=== PATIENT | female | born 1975 | race Caucasian/White ===

== ENCOUNTER 2018-03-09 14:14 | Inpatient (IN) | payer OTHER, SELFPAY ==
[2018-03-09 15:42] LABS: HEMATOCRIT 42.7 % (36.0-47.0); HEMOGLOBIN 14.7 g/dl (12.0-15.5); MEAN CORPUSCULAR HEMOGLOBIN 30.5 pg (27.0-33.0); MEAN CORPUSCULAR HGB CONC 34.4 g/dl (32.0-36.5); MEAN CORPUSCULAR VOLUME 88.6 fl (80.0-96.0); PLATELET COUNT, AUTOMATED 220 10^3/uL (150-450); RED BLOOD COUNT 4.82 10^6/uL (4.00-5.40); RED CELL DISTRIBUTION WIDTH 11.8 % (11.5-14.5); WHITE BLOOD COUNT 7.5 10^3/uL (4.0-10.0)
[2018-03-09 16:03] LABS: CONTROL LINE HCG INT CTR LINE PRESENT; HCG, SERUM QUALITATIVE NEGATIVE (NEGATIVE)
[2018-03-09 16:16] LABS: AMPHETAMINES LEVEL URINE NEGATIVE (NEGATIVE); BARBITURATES URINE NEGATIVE (NEGATIVE); BENZODIAZEPINES URINE NEGATIVE (NEGATIVE); CANNABINOIDS URINE NEGATIVE (NEGATIVE); COCAINE METABOLITE URINE NEGATIVE (NEGATIVE); METHADONE URINE NEGATIVE (NEGATIVE); OPIATES URINE NEGATIVE (NEGATIVE); PHENCYCLIDINE URINE NEGATIVE (NEGATIVE)
[2018-03-09 16:21] LABS: ACETAMINOPHEN LEVEL < 2.0 UG/ML (10.0-30.0); ALBUMIN 4.2 GM/DL (3.2-5.2); ALBUMIN/GLOBULIN RATIO 1.27 (1.00-1.93); ALKALINE PHOSPHATASE 81 U/L (45-117); ALT/SGPT 34 U/L (12-78); ANION GAP 10 MEQ/L (8-16); AST/SGOT 23 U/L (7-37); BILIRUBIN,DIRECT 0.1 MG/DL (0.0-0.2); BILIRUBIN,TOTAL 0.5 MG/DL (0.2-1.0); BLOOD UREA NITROGEN 11 MG/DL (7-18); CALCIUM LEVEL 8.9 MG/DL (8.5-10.1); CARBON DIOXIDE LEVEL 27 MEQ/L (21-32); CHLORIDE LEVEL 106 MEQ/L (98-107); CREATININE FOR GFR 0.85 MG/DL (0.55-1.30); ETHYL ALCOHOL (ETHANOL) < 0.003 % (0.000-0.010); GLOMERULAR FILTRATION RATE > 60.0 (>58); GLUCOSE, FASTING 84 MG/DL (70-100); SALICYLATE LEVEL < 1.7 MG/DL (5.0-30.0); SODIUM LEVEL 143 MEQ/L (136-145); TOTAL PROTEIN 7.5 GM/DL (6.4-8.2)
[2018-03-09] MEDS ORDERED: MOM 30ML SUSPENSION UDC PO (17:15)
[2018-03-09] MEDS ORDERED: MAALOX 30 ML SUSP *UDC PO (17:15)
[2018-03-10] MEDS ORDERED: OLANZapine ORAL DISINTEGRATING TAB 5MG PO (14:30)
[2018-03-10] MEDS ORDERED: hydrOXYzine 50 MG TAB PO (14:30)
[2018-03-10] MEDS ORDERED: diphenhydrAMINE 50 MG CAP PO (14:30)
[2018-03-10] MEDS: QUEtiapine FUMARATE 50 MG TAB PO ×2 (16:09→21:00)
[2018-03-11] MEDS: QUEtiapine FUMARATE 50 MG TAB PO ×3 (10:04→21:00)
[2018-03-12] MEDS: QUEtiapine FUMARATE 50 MG TAB PO ×2 (09:58→15:00)
[2018-03-12] MEDS: PALIPERIDONE PALMITATE 234 MG/1.5 ML INJ (INVEGA SUSTENNA)(J2426) IM (15:00)
[2018-03-12] MEDS: ACETAMINOPHEN TAB 650MG DOSE (2X325MG) PO (16:01)
[2018-03-13] MEDS: PILL CRUSHER/CUTTER 1 EACH XX (09:46)
[2018-03-14] MEDS: PILL CRUSHER/CUTTER 1 EACH XX ×2 (09:46→22:00)
[2018-03-16] MEDS: ACETAMINOPHEN TAB 650MG DOSE (2X325MG) PO ×2 (12:53→21:32)
[2018-03-17] MEDS: traZODone 50 MG TAB PO (23:30)
[2018-03-18] MEDS: ACETAMINOPHEN TAB 650MG DOSE (2X325MG) PO (01:52)
[2018-03-18] MEDS: ARIPiprazole 10 MG TAB PO (20:41)
[2018-03-19] MEDS: ARIPiprazole 10 MG TAB PO ×2 (09:36→19:55)
[2018-03-19] MEDS: diphenhydrAMINE 50 MG CAP PO (23:36)
[2018-03-20] MEDS: diphenhydrAMINE 50 MG CAP PO ×2 (08:35→21:00)
[2018-03-20] MEDS: ARIPiprazole 10 MG TAB PO ×2 (08:35→21:07)
[2018-03-21] MEDS: diphenhydrAMINE 50 MG CAP PO ×2 (08:33→21:00)
[2018-03-21] MEDS: ARIPiprazole 10 MG TAB PO ×2 (08:33→20:24)
[2018-03-22] MEDS: diphenhydrAMINE 50 MG CAP PO ×2 (09:00→21:00)
[2018-03-22] MEDS: ARIPiprazole 10 MG TAB PO ×2 (09:56→21:05)
[2018-03-22] MEDS ORDERED: TUBERCULIN PPD 5 UNITS/0.1 ML ID (10:15)
[2018-03-22] MEDS: TUBERCULIN PPD 5 UNITS/0.1 ML ID (10:26)
[2018-03-22] MEDS: ACETAMINOPHEN TAB 650MG DOSE (2X325MG) PO (11:58)
[2018-03-23] MEDS: diphenhydrAMINE 50 MG CAP PO ×2 (09:00→20:19)
[2018-03-23] MEDS: ARIPiprazole 10 MG TAB PO ×2 (09:58→20:18)
[2018-03-24] MEDS: diphenhydrAMINE 50 MG CAP PO ×3 (09:00→21:29)
[2018-03-24] MEDS: ARIPiprazole 10 MG TAB PO ×2 (10:14→20:43)
[2018-03-24] MEDS: PPD DOCUMENTATION ENTRY MISC XX (11:11)
[2018-03-25] MEDS: ARIPiprazole 10 MG TAB PO (08:42)
[2018-03-25] MEDS: diphenhydrAMINE 50 MG CAP PO ×2 (08:42→20:33)
[2018-03-25] MEDS: ACETAMINOPHEN TAB 650MG DOSE (2X325MG) PO (12:38)
[2018-03-25] MEDS: ARIPiprazole 15 MG TAB (AbiLIFY) PO (20:33)
[2018-03-26] MEDS: ARIPiprazole 15 MG TAB (AbiLIFY) PO ×2 (08:27→20:05)
[2018-03-26] MEDS: diphenhydrAMINE 50 MG CAP PO ×2 (08:29→20:06)
[2018-03-26] MEDS: ACETAMINOPHEN TAB 650MG DOSE (2X325MG) PO (22:40)
[2018-03-27] MEDS: diphenhydrAMINE 50 MG CAP PO ×2 (09:00→20:12)
[2018-03-27] MEDS: ARIPiprazole 15 MG TAB (AbiLIFY) PO ×2 (09:43→20:12)
[2018-03-28] MEDS: diphenhydrAMINE 50 MG CAP PO ×2 (09:00→20:41)
[2018-03-28] MEDS: ARIPiprazole 15 MG TAB (AbiLIFY) PO ×2 (09:29→20:42)
[2018-03-29] MEDS: diphenhydrAMINE 50 MG CAP PO ×2 (09:00→20:47)
[2018-03-29] MEDS: ARIPiprazole 15 MG TAB (AbiLIFY) PO ×2 (09:45→20:46)
[2018-03-30] MEDS: diphenhydrAMINE 50 MG CAP PO (09:00)
[2018-03-30] MEDS ORDERED: risperiDONE 2 MG TAB PO ×2 (09:00→21:00)
[2018-03-30] MEDS: ARIPiprazole 15 MG TAB (AbiLIFY) PO (10:12)
[2018-03-30] MEDS ORDERED: risperiDONE 3 MG TAB PO ×2 (15:00→21:00)
[2018-03-30] MEDS: BENZTROPINE 1 MG TAB PO (20:33)
[2018-03-30] MEDS: risperiDONE 3 MG TAB PO (20:33)
[2018-03-30] MEDS ORDERED: diphenhydrAMINE 25 MG CAP PO (21:00)
[2018-03-30] MEDS ORDERED: BENZTROPINE 1 MG TAB PO (21:00)
[2018-03-31] MEDS: risperiDONE 2 MG TAB PO (08:34)
[2018-03-31] MEDS ORDERED: ARIPiprazole 10 MG TAB PO (09:00)
[2018-03-31] MEDS: risperiDONE 3 MG TAB PO (20:45)
[2018-03-31] MEDS: BENZTROPINE 1 MG TAB PO (20:45)
[2018-04-01] MEDS: risperiDONE 2 MG TAB PO (09:35)
[2018-04-01] MEDS: BENZTROPINE 1 MG TAB PO (20:03)
[2018-04-01] MEDS: risperiDONE 3 MG TAB PO (20:03)
[2018-04-02] MEDS: risperiDONE 2 MG TAB PO (09:28)
[2018-04-02] MEDS: BENZTROPINE 1 MG TAB PO (20:59)
[2018-04-02] MEDS: risperiDONE 3 MG TAB PO (20:59)
[2018-04-03] MEDS: risperiDONE 2 MG TAB PO (09:37)
[2018-04-03] MEDS: BENZTROPINE 1 MG TAB PO (19:57)
[2018-04-03] MEDS: risperiDONE 3 MG TAB PO (19:58)
[2018-04-04] MEDS: risperiDONE 2 MG TAB PO (09:05)
[2018-04-04] MEDS: risperiDONE 3 MG TAB PO (20:11)
[2018-04-04] MEDS: BENZTROPINE 1 MG TAB PO (20:11)
[2018-04-05] MEDS: risperiDONE 2 MG TAB PO (09:28)
[2018-04-05] MEDS: PILL CRUSHER/CUTTER 1 EACH XX (09:28)
== END 2018-04-05 13:15 | DRG 750 ==
LOC: M PSY 03-10 11:38 → M ED 14:14 → M ED INP 17:08 → M PSY 18:10
DX: F25.0 Schizoaffective disorder, bipolar type (principal); F17.210 Nicotine dependence, cigarettes, uncomplicated; J30.81 Allergic rhinitis due to animal (cat) (dog) hair and dander; J30.1 Allergic rhinitis due to pollen; Z91.048 Other nonmedicinal substance allergy status; Z91.14 Patient's other noncompliance with medication regimen; Z90.710 Acquired absence of both cervix and uterus; Z88.5 Allergy status to narcotic agent; Z79.899 Other long term (current) drug therapy

== ENCOUNTER 2019-05-26 17:32 | Inpatient (IN) | payer OTHER ==
[~2019-05-26] VITALS: Ht 157.5 cm; Wt 83.3 kg
[~2019-05-26 17:32] MED LIST: ARIP1TAB6 PO; BENZ-52 PO; HYDR1TAB33 PO; INVE234I IM; IRON65TA PO; PRENTAB55 PO; PROZ20CA11 PO; RISP2TAB32 PO; RISP3TAB20 PO; RISP3TAB3 PO; TRAZ1TAB10 PO
[2019-05-26] MEDS ORDERED: BENZ-52 PO (18:39)
[2019-05-26] MEDS ORDERED: PALI1TAB PO (18:39)
[2019-05-26 18:40] LABS: HEMATOCRIT 43.7 % (36.0-47.0); HEMOGLOBIN 14.5 g/dl (12.0-15.5); MEAN CORPUSCULAR HEMOGLOBIN 29.8 pg (27.0-33.0); MEAN CORPUSCULAR HGB CONC 33.2 g/dl (32.0-36.5); MEAN CORPUSCULAR VOLUME 89.7 fl (80.0-96.0); PLATELET COUNT, AUTOMATED 197 10^3/uL (150-450); RED BLOOD COUNT 4.87 10^6/uL (4.00-5.40); WHITE BLOOD COUNT 6.6 10^3/uL (4.0-10.0)
[2019-05-26] MEDS ORDERED: INVE156I IM (18:41)
[2019-05-26 19:14] LABS: ACETAMINOPHEN LEVEL < 2.0 UG/ML (10.0-30.0); ALBUMIN 3.7 GM/DL (3.2-5.2); ALT/SGPT 25 U/L (12-78); BILIRUBIN,DIRECT < 0.1 MG/DL (0.0-0.2); BILIRUBIN,TOTAL 0.3 MG/DL (0.2-1.0); BLOOD UREA NITROGEN 10 MG/DL (7-18); CALCIUM LEVEL 8.4 MG/DL (8.5-10.1); CARBON DIOXIDE LEVEL 24 MEQ/L (21-32); CHLORIDE LEVEL 110 MEQ/L (98-107); CREATININE FOR GFR 0.84 MG/DL (0.55-1.30); ETHYL ALCOHOL (ETHANOL) < 0.003 % (0.000-0.010); GLOMERULAR FILTRATION RATE > 60.0 (>58); GLUCOSE, FASTING 100 MG/DL (70-100); POTASSIUM SERUM 3.9 MEQ/L (3.5-5.1); SALICYLATE LEVEL < 1.7 MG/DL (5.0-30.0); SODIUM LEVEL 143 MEQ/L (136-145); TOTAL PROTEIN 6.8 GM/DL (6.4-8.2)
[2019-05-26 20:06] LABS: AMPHETAMINES LEVEL URINE NEGATIVE (NEGATIVE); BARBITURATES URINE NEGATIVE (NEGATIVE); BENZODIAZEPINES URINE NEGATIVE (NEGATIVE); CANNABINOIDS URINE NEGATIVE (NEGATIVE); COCAINE METABOLITE URINE NEGATIVE (NEGATIVE); METHADONE URINE NEGATIVE (NEGATIVE); OPIATES URINE NEGATIVE (NEGATIVE); PHENCYCLIDINE URINE NEGATIVE (NEGATIVE)
[2019-05-26] MEDS ORDERED: ACETAMINOPHEN TAB 650MG DOSE (2X325MG) PO PRN (21:00)
[2019-05-26] MEDS ORDERED: MAALOX 30 ML SUSP *UDC PO PRN (21:00)
[2019-05-26] MEDS ORDERED: MOM 30ML SUSPENSION UDC PO PRN (21:00)
[2019-05-26] MEDS ORDERED: OLANZapine ORAL DISINTEGRATING TAB 5MG PO PRN (21:00)
[2019-05-26] MEDS ORDERED: traZODone 50 MG TAB PO PRN (21:00)
[2019-05-26] MEDS ORDERED: BENZTROPINE 1 MG TAB PO PRN (21:00)
[2019-05-26 22:59] VITALS: BP 141/84
--- NOTE | 2019-05-27 11:32 | HPEPDOC ---
[facility] [place] Medical History & Physical Date of Admission May 26, 2019 Date of Service: May 27, 2019 History and Physical CHIEF COMPLAINT: Psychiatric "decompensation" HISTORY OF PRESENT ILLNESS: Patient is 43F with psychiatric history with documented depression and bipolar disorder brought in by [facility] with complaints of psychiatric decompensation. Patient reports that it is complicated why she is here but she was arguing with her fiance and somehow was brought into the hospital. Per ER documentation, patient reportedly has been more paranoid and needing medication changes. Patient denies having any medical problems and states that she has had a cold for about 3 days with nasal congestion but otherwise denies any other physical complaints at this time including chest pain, SOB, fever, chills, nausea, vomiting. Denies suicidal ideation. PAST MEDICAL HISTORY: Refer to [facility] PAST SURGICAL HISTORY: Tubal ligation SOCIAL HISTORY: Occasional cigarette but not often. Denies alcohol or illicit drug use. FAMILY HISTORY: Father- mesothelioma ALLERGIES: Please see below. REVIEW OF SYSTEMS: 10 point review of system negative except as stated in HPI HOME MEDICATIONS: Please see below. PHYSICAL EXAMINATION: General: No acute distress, Alert Eyes: Normal sclera, EOMI HENT: Atraumatic Cardiovascular: Normal rate, normal rhythm. Pulmonary: Clear to auscultation b/l, no wheezing GI: Soft, nontender, nondistended Skin: Warm and dry Neuro: CN grossly intact. No focal deficits. LABORATORY DATA: See below. MICROBIOLOGY: Please see below. ASSESSMENT AND PLAN: 1. Depression/Bipolar? - Patient reports only hx of depression but previous documentation also reports bipolar disorder. - To be assess and managed by Psych. - Denies active suicidal ideation. 2. Nasal congestion - conservative symptom control. - Patient is afebrile with no leukocytosis or evidence of infection otherwise. Will sign off. Please call back with any questions or concerns. Vital Signs Vital Signs Date Time Temp Pulse Resp B/P (MAP) Pulse Ox O2 Delivery O2 Flow Rate FiO2 05/26/19 22:59 97.9 82 16 141/84 (103) 98 Room Air Laboratory Data Labs 24H Laboratory Tests 2 05/26/19 18:22: Nucleated Red Blood Cells % (auto) 0.0, Anion Gap 9, Glomerular Filtration Rate > 60.0, Calcium Level 8.4L, Total Bilirubin 0.3, Direct Bilirubin < 0.1, Aspartate Amino Transf (AST/SGOT) 16, Alanine Aminotransferase (ALT/SGPT) 25, Alkaline Phosphatase 80, Total Protein 6.8, Albumin 3.7, Albumin/Globulin Ratio 1.19, Thyroid Stimulating Hormone (TSH) 1.190, Salicylates Level < 1.7L, Acetaminophen Level < 2.0L, Ethyl Alcohol Level < 0.003 05/26/19 19:27: Urine Opiates Screen NEGATIVE, Urine Methadone Screen NEGATIVE, Urine Barbiturates Screen NEGATIVE, Urine Phencyclidine Screen NEGATIVE, Urine Amphetamines Screen NEGATIVE, Urine Benzodiazepines Screen NEGATIVE, Urine Cocaine Metabolite Screen NEGATIVE, Urine Cannabinoids Screen NEGATIVE CBC/BMP Laboratory Tests 05/26/19 18:22 Home Medications Scheduled Fluoxetine HCl (Prozac) 20 Mg Cap, 20 MG PO DAILY Paliperidone (Paliperidone ER) 1.5 Mg Tab.er.24, 1.5 MG PO QHS Paliperidone Palmitate (Invega Sustenna) 156 Mg/1 Ml Syringe, 156 MG IM QMONTH Scheduled PRN Benztropine Mesylate (Benztropine Mesylate) 1 Mg Tablet, 1 MG PO QHS PRN for EXTRAPYRAMIDAL SIDE EFFECTS Allergies Coded Allergies: codeine (Verified Allergy, Intermediate, facial swelling, 05/26/19) Cat Dander (Verified Allergy, Mild, 03/10/18) POLLEN (Verified Allergy, Mild, 03/10/18) mold (Verified Allergy, Unknown, 05/26/19) A-FIB/CHADSVASC A-FIB History Current/History of A-Fib/PAF?: No TIM COPELAND MD May 27, 2019 11:32
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
[2019-05-27 16:41] VITALS: BP 127/77
[2019-05-27] MEDS ORDERED: PALIPERIDONE 3 MG ER TAB (INVEGA) PO SCH (19:30)
[2019-05-27] MEDS ORDERED: BENZTROPINE 1 MG TAB PO PRN (19:30)
[2019-05-28 06:00] VITALS: BP_SYST 142; BP_SYST 148; BP_DIAS 75; BP_DIAS 81
[2019-05-28] MEDS: FLUoxetine 20 MG CAP PO SCH (08:51)
[2019-05-28] MEDS ORDERED: PALIPERIDONE 3 MG ER TAB (INVEGA) PO SCH (09:00)
[2019-05-28 16:03] VITALS: BP 150/87
--- NOTE | 2019-05-28 16:41 | MHIPNPDOC ---
[facility] Progress Note Progress Note DATE OF SERVICE: 05/28/19 HISTORY: As per ED PSA evaluation: "Reason for Referral Pt has a hx of Schizoaffective Disorder, brought to the ED by significant other and suspects she is decompensating and requires a medication change. Chief Complaint pt states, "I don't know why I am here." Pt's interview was limited due to pt being a poor historian, therefore all information was obtained by henry. He reports pt has been declining since Apr, presented [facility] and felt she required her Invega to be increased, but pt refused. Med provider did not feel he could force a medication increase without her consent, so her Invega continues to be at the same dosage. Henry' believes she is decompensating and it is influencing her safety and the safety of her 4 yr old daughter at home. Pt is not sleeping, he states pt is paranoid, but unable to identify what she is paranoid about? He suspects she may be respnding to internal stimuli, but refuses to tell anyone. At this time he is requesting [facility] for medication change to ensure everyone's safety before she decompensates further." VITAL SIGNS: See below. NEW TEST RESULTS: See below CURRENT MEDICATIONS: See below. MENTAL STATUS EXAMINATION: Patient is a 43-year old female, who is alert, dressed in hospital clothes. Speech: Is normal in r/t/v-- spontaneous and fluent. Language skills are good. Thought processes including: disorganized. Thought content: paranoid thoughts, mostly about her . Description of associations: good Description of abnormal or psychotic thoughts: she has paranoid delusions, she thinks her has been lying to her. She denies auditory, visual, tactile hallucinations Judgment: limited Insight: limited Orientation: to place and person Recent and remote memory: fair Attention span and concentration: good. Language: no abnormalities observed. Mood: "relieved but sad" . Affect: inappropriate, she smiles constantly as we are talking about serious issues. . DIAGNOSES: 1. Schizoaffective d/o ASSESSMENT: Patient is responding to medication but I will increase her dose to 3 mgs PO BID as I know it takes some time for her to improve, she was my patient before. MANAGEMENT PLAN: will increase Invega to 3 mgs PO BID TIME SPENT: 15 minutes. Vital Signs Vital Signs Date Time Temp Pulse Resp B/P (MAP) Pulse Ox O2 Delivery O2 Flow Rate FiO2 05/28/19 16:03 97.3 98 16 150/87 (108) 05/26/19 22:59 98 Room Air Current Medications Current Medications Medications (Trade) Dose Ordered Sig/Oralia Route PRN Reason Start Time Stop Time Status Last Admin Dose Admin Acetaminophen (Tylenol Tab) 650 mg Q6HP PRN PO HEADACHE or DISCOMFORT 05/26/19 21:00 Al Hydrox/Mg Hydrox/Simethicone (Mylanta) 30 ml Q4HP PRN PO HEARTBURN/INDIGESTION 05/26/19 21:00 Benztropine Mesylate (Cogentin) 1 mg QHS PRN PO EXTRAPYRAMIDAL SIDE EFFECTS 05/27/19 19:30 Benztropine Mesylate (Cogentin) 1 mg QHSP PRN PO Extrapyramidal Side Effects 05/26/19 21:00 Fluoxetine HCl (PROzac) 20 mg DAILY PO 05/28/19 09:00 05/28/19 08:51 Home Med (Med Rec Complete!) ASDIRECTED XX 05/26/19 18:45 05/26/19 18:43 DC Magnesium Hydroxide (Milk Of Magnesia) 30 ml DAILYPRN PRN PO CONSTIPATION 05/26/19 21:00 Olanzapine (ZyPREXA ZYDIS) 10 mg Q4HP PRN PO Anxiety/Agitation 05/26/19 21:00 Paliperidone (Invega) 1.5 mg QAM PO 05/28/19 09:00 05/27/19 19:27 DC Paliperidone (Invega) 3 mg QHS PO 05/27/19 19:30 05/27/19 19:37 Trazodone HCl (Desyrel) 50 mg QHSP PRN PO INSOMNIA 05/26/19 21:00 Allergies Coded Allergies: codeine (Verified Allergy, Intermediate, facial swelling, 05/26/19) Cat Dander (Verified Allergy, Mild, 03/10/18) POLLEN (Verified Allergy, Mild, 03/10/18) mold (Verified Allergy, Unknown, 05/26/19) RICHY LOPEZ MD May 28, 2019 16:38
[2019-05-28] MEDS: PALIPERIDONE 3 MG ER TAB (INVEGA) PO SCH (20:29)
[2019-05-29 06:11] VITALS: BP 134/74
[2019-05-29] MEDS: PALIPERIDONE 3 MG ER TAB (INVEGA) PO SCH ×2 (09:01→20:19)
[2019-05-29] MEDS: FLUoxetine 20 MG CAP PO SCH (09:02)
--- NOTE | 2019-05-29 12:48 | MHIPNPDOC ---
[facility] Progress Note Progress Note DATE OF SERVICE: 05/29/19 HISTORY: As per ED PSA evaluation: "Reason for Referral Pt has a hx of Schizoaffective Disorder, brought to the ED by significant other and suspects she is decompensating and requires a medication change. Chief Complaint pt states, "I don't know why I am here." Pt's interview was limited due to pt being a poor historian, therefore all information was obtained by henry. He reports pt has been declining since Apr, presented [facility] and felt she required her Invega to be increased, but pt refused. Med provider did not feel he could force a medication increase without her consent, so her Invega continues to be at the same dosage. Henry' believes she is decompensating and it is influencing her safety and the safety of her 4 yr old daughter at home. Pt is not sleeping, he states pt is paranoid, but unable to identify what she is paranoid about? He suspects she may be respnding to internal stimuli, but refuses to tell anyone. At this time he is requesting [facility] for medication change to ensure everyone's safety before she decompensates further." VITAL SIGNS: See below. NEW TEST RESULTS: See below CURRENT MEDICATIONS: See below. MENTAL STATUS EXAMINATION: Patient is a 43-year old female, who is alert, dressed in hospital clothes. Speech: Is normal in tone, rate, rhythm, volume. spontaneous and fluent. Language skills are good. Thought processes including: continues to report paranoid thoughts although she is not paranoid with this personal lines underwriter,. Linear. Thought content: paranoid thoughts, she continues to believe he has been lying to her, she says she knows the truth know, she thinks she has been unfaithful, she says even her daughter has noticed that he is a liar. Description of associations: loose at times Description of abnormal or psychotic thoughts: she has paranoid delusions, she thinks her has been lying to her. She denies auditory, visual, tactile hallucinations but she is paranoid Judgment: poor Insight: poor Orientation: to place and person Recent and remote memory: limited, she has no recollection of recent events, she thinks some of those memories are her altered thoughts regarding her Attention span and concentration: good. Language: no abnormalities observed. Mood: "sad" . Affect: inappropriate, she smiles constantly as we are talking about serious issues. . DIAGNOSES: 1. Schizoaffective d/o ASSESSMENT: She has had a very similar presentation, when she had trust issues with her SO, she was afraid of losing her 4 year old daughter to him. This time she says that even her 4 year old daughter has noticed that he has lied to them, the child has spoken to her about daddy and she has "figured him out, now she knows who he is". she has inappropriate affect, she smiles constantly while she is talking, even when she is talking about something sad or upsetting, she smiles. she's not aggressive, not angry, not violent at this time but she is still psychotic. MANAGEMENT PLAN: continue with current treatment plan TIME SPENT: 15 minutes. Vital Signs Vital Signs Date Time Temp Pulse Resp B/P (MAP) Pulse Ox O2 Delivery O2 Flow Rate FiO2 05/29/19 06:11 96.9 67 14 134/74 (94) 05/26/19 22:59 98 Room Air Current Medications Current Medications Medications (Trade) Dose Ordered Sig/Oralia Route PRN Reason Start Time Stop Time Status Last Admin Dose Admin Acetaminophen (Tylenol Tab) 650 mg Q6HP PRN PO HEADACHE or DISCOMFORT 05/26/19 21:00 Al Hydrox/Mg Hydrox/Simethicone (Mylanta) 30 ml Q4HP PRN PO HEARTBURN/INDIGESTION 05/26/19 21:00 Benztropine Mesylate (Cogentin) 1 mg QHS PRN PO EXTRAPYRAMIDAL SIDE EFFECTS 05/27/19 19:30 Benztropine Mesylate (Cogentin) 1 mg QHSP PRN PO Extrapyramidal Side Effects 05/26/19 21:00 Fluoxetine HCl (PROzac) 20 mg DAILY PO 05/28/19 09:00 05/29/19 09:02 Home Med (Med Rec Complete!) ASDIRECTED XX 05/26/19 18:45 05/26/19 18:43 DC Magnesium Hydroxide (Milk Of Magnesia) 30 ml DAILYPRN PRN PO CONSTIPATION 05/26/19 21:00 Olanzapine (ZyPREXA ZYDIS) 10 mg Q4HP PRN PO Anxiety/Agitation 05/26/19 21:00 Paliperidone (Invega) 1.5 mg QAM PO 05/28/19 09:00 05/27/19 19:27 DC Paliperidone (Invega) 3 mg BID PO 05/28/19 21:00 05/29/19 09:01 Paliperidone (Invega) 3 mg QHS PO 05/27/19 19:30 05/28/19 16:41 DC 05/27/19 19:37 Trazodone HCl (Desyrel) 50 mg QHSP PRN PO INSOMNIA 05/26/19 21:00 Allergies Coded Allergies: codeine (Verified Allergy, Intermediate, facial swelling, 05/26/19) Cat Dander (Verified Allergy, Mild, 03/10/18) POLLEN (Verified Allergy, Mild, 03/10/18) mold (Verified Allergy, Unknown, 05/26/19) RICHY LOPEZ MD May 29, 2019 12:48
[2019-05-29 19:00] VITALS: BP 140/80
[2019-05-30 06:18] VITALS: BP 132/74
[2019-05-30] MEDS: FLUoxetine 20 MG CAP PO SCH (09:05)
[2019-05-30] MEDS: PALIPERIDONE 3 MG ER TAB (INVEGA) PO SCH (09:05)
--- NOTE | 2019-05-30 10:22 | MHIPNPDOC ---
[facility] Progress Note Progress Note Inpatient Progress Note Zaida Mehta MRN: N/A Date of : N/A Date of Service: 05/30/2019 History of Present Illness The patient is a 43-year-old woman with a history of schizophr enia/schizoaffective disorder, is brought in by her as she has become increasingly more paranoid, decompensated and unable to care for herself. The patient was brought in; however, she was not a sufficient historian and was admitted out of abundance of caution. The patient was met with, she was very guarded at times, but other times would give simple "no answers" and did not participate in the interview significantly well likely due to psychogenic thought process. She did report some paranoid thoughts, but was unable to describe them staring off into the distance. Interval History Psychiatric symptoms today: Affective: The patient reports that she still feels "down," unable to effectively relay much information due to her thought process. Psychotic: The patient is still disorganized, unable to socialize and is quite quiet, still report some paranoid thoughts. Anxiety: Denies any significant anxiety paradoxically. Misc: Continues to walk around, smiling unusually. Group Attendance: Present in most groups. Medication Side effects: See ROS below Behavioral problems/significant events overnight: None reported. Staff Report: Patient's still psychotic and generally unable to engage in meaningful conversation although comes to groups regularly. Review Of Systems Cardiovascular: Denies Chest pain or palpations GI: Denies Nausea, vomiting, or bowel changes Respiratory: Denies shortness of breath or cough Neuro: Denies dizziness, tremors Derm: Denies any rashes or pruritus MSK: Denies any muscle tightness or stiffness HEENT: Denies any vision changes or headaches Psychotherapy None on this visit. Vital Signs Reviewed. Mental Status Examination General: Well dressed with good hygiene Speech: Answers questions only Thought processes: Circumstantial MSK: Smooth and coordinated gait, no signs of tremors or involuntary orofacial movements Thought content: Guarded Abstract reasoning, and computation: Impaired Description of associations: Impaired Description of abnormal or psychotic thoughts: Denies any suicidal or homicidal ideation. Denies any auditory or visual hallucinations. Does not appear to be responding to internal stimuli. Does not appear to be endorsing any bizarre or paranoid ideation. Judgment: Impaired Insight: Impaired Orientation: Alert and orientated 3 Cognition: Appears grossly slowed Recent and remote memory: Intact Attention span and concentration: Appears to be slowed secondary to thought process Fund of knowledge: Adequate Mood: "Fine" Affect: Flat with level of activity Diagnoses Schizoaffective disorder, psychotic episode. Tobacco use disorder, unspecified. Assessment and Plan Schizoaffective disorder: We'll discontinue Invega as unhelpful. We'll start cariprazine 1.5 mg nightly. Discussed risks, benefits and potential side effects with patient as well as alternatives as far as she is able to understand at this time. Tobacco use disorder: Offered nicotine patch. Disposition The patient will need a further inpatient admission due to her severely impairing psychosis and inability to care for. Time Spent 15 minutes. Thursday Vital Signs Vital Signs Date Time Temp Pulse Resp B/P (MAP) Pulse Ox O2 Delivery O2 Flow Rate FiO2 05/30/19 06:18 97.9 72 14 132/74 (93) 05/26/19 22:59 98 Room Air Current Medications Current Medications Medications (Trade) Dose Ordered Sig/Oralia Route PRN Reason Start Time Stop Time Status Last Admin Dose Admin Acetaminophen (Tylenol Tab) 650 mg Q6HP PRN PO HEADACHE or DISCOMFORT 05/26/19 21:00 Al Hydrox/Mg Hydrox/Simethicone (Mylanta) 30 ml Q4HP PRN PO HEARTBURN/INDIGESTION 05/26/19 21:00 Benztropine Mesylate (Cogentin) 1 mg QHS PRN PO EXTRAPYRAMIDAL SIDE EFFECTS 05/27/19 19:30 Benztropine Mesylate (Cogentin) 1 mg QHSP PRN PO Extrapyramidal Side Effects 05/26/19 21:00 Fluoxetine HCl (PROzac) 20 mg DAILY PO 05/28/19 09:00 05/30/19 09:05 Home Med (Med Rec Complete!) ASDIRECTED XX 05/26/19 18:45 05/26/19 18:43 DC Magnesium Hydroxide (Milk Of Magnesia) 30 ml DAILYPRN PRN PO CONSTIPATION 05/26/19 21:00 Olanzapine (ZyPREXA ZYDIS) 10 mg Q4HP PRN PO Anxiety/Agitation 05/26/19 21:00 Paliperidone (Invega) 1.5 mg QAM PO 05/28/19 09:00 05/27/19 19:27 DC Paliperidone (Invega) 3 mg BID PO 05/28/19 21:00 05/30/19 09:05 Paliperidone (Invega) 3 mg QHS PO 05/27/19 19:30 05/28/19 16:41 DC 05/27/19 19:37 Trazodone HCl (Desyrel) 50 mg QHSP PRN PO INSOMNIA 05/26/19 21:00 Allergies Coded Allergies: codeine (Verified Allergy, Intermediate, facial swelling, 05/26/19) Cat Dander (Verified Allergy, Mild, 03/10/18) POLLEN (Verified Allergy, Mild, 03/10/18) mold (Verified Allergy, Unknown, 05/26/19) RACHEL QUIROGA DO May 30, 2019 10:22
[2019-05-30 16:52] VITALS: BP 123/76
[2019-05-30] MEDS ORDERED: CARIPRAZINE 1.5MG CAPSULE (VRAYLAR) PO SCH (21:00)
[2019-05-31 05:49] VITALS: BP 117/63
[2019-05-31] MEDS: FLUoxetine 20 MG CAP PO SCH (09:20)
--- NOTE | 2019-05-31 09:26 | MHIPNPDOC ---
[facility] [place] Progress Note Zaida Mehta MRN: N/A Date of : N/A Date of Service: 05/31/2019 History of Present Illness The patient is a 43-year-old woman with a history of schizophr enia/schizoaffective disorder, is brought in by her as she has become increasingly more paranoid, decompensated and unable to care for herself. The patient was brought in; however, she was not a sufficient historian and was admitted out of abundance of caution. The patient was met with, she was very guarded at times, but other times would give simple "no answers" and did not participate in the interview significantly well likely due to psychogenic thought process. She did report some paranoid thoughts, but was unable to describe them staring off into the distance. Interval History Psychiatric symptoms today: Affective: The patient reports feeling "better." She reports feeling less depressed. She has been smiling more, more engaged and appears to be enjoying activities more. Psychotic: The patient still seems to have difficulty communicating with a mildly disorganized thought process that appears to be improved. No paranoia noted. Anxiety: Patient denies any anxiety symptoms. Misc: Patient appears to be more able to interact although still have some unusual behaviors. Group Attendance: Present in most groups. Medication Side effects: See ROS below Behavioral problems/significant events overnight: None reported. Staff Report: Patient appears to be more conversant although still unable to have any meaningful conversation. Review Of Systems Cardiovascular: Denies Chest pain or palpations GI: Denies Nausea, vomiting, or bowel changes Respiratory: Denies shortness of breath or cough Neuro: Denies dizziness, tremors Derm: Denies any rashes or pruritus MSK: Denies any muscle tightness or stiffness HEENT: Denies any vision changes or headaches Psychotherapy None on this visit. Vital Signs Reviewed. Mental Status Examination General: Well dressed with good hygiene Speech: Answers questions only Thought processes: Circumstantial MSK: Smooth and coordinated gait, no signs of tremors or involuntary orofacial movements Thought content: Guarded Abstract reasoning, and computation: Impaired Description of associations: Impaired Description of abnormal or psychotic thoughts: Denies any suicidal or homicidal ideation. Denies any auditory or visual hallucinations. Does not appear to be responding to internal stimuli. Does not appear to be endorsing any bizarre or paranoid ideation. Judgment: Impaired Insight: Impaired Orientation: Alert and orientated 3 Cognition: Appears grossly slowed Recent and remote memory: Intact Attention span and concentration: Appears to be slowed secondary to thought process Fund of knowledge: Adequate Mood: "Fine" Affect: More reactive. Diagnoses Schizoaffective disorder, psychotic episode. Tobacco use disorder, unspecified. Assessment and Plan Schizoaffective disorder: Increase cariprazine to 3 mg nightly. Tobacco use disorder: Offered nicotine patch. Disposition The patient will need a further inpatient admission due to her severely impairing psychosis and inability to care for. Time Spent 15 minutes. Thursday Vital Signs Vital Signs Date Time Temp Pulse Resp B/P (MAP) Pulse Ox O2 Delivery O2 Flow Rate FiO2 05/31/19 06:43 94 05/31/19 05:49 98.0 16 117/63 (81) 05/26/19 22:59 98 Room Air Current Medications Current Medications Medications (Trade) Dose Ordered Sig/Oralia Route PRN Reason Start Time Stop Time Status Last Admin Dose Admin Acetaminophen (Tylenol Tab) 650 mg Q6HP PRN PO HEADACHE or DISCOMFORT 05/26/19 21:00 Al Hydrox/Mg Hydrox/Simethicone (Mylanta) 30 ml Q4HP PRN PO HEARTBURN/INDIGESTION 05/26/19 21:00 Benztropine Mesylate (Cogentin) 1 mg QHS PRN PO EXTRAPYRAMIDAL SIDE EFFECTS 05/27/19 19:30 Benztropine Mesylate (Cogentin) 1 mg QHSP PRN PO Extrapyramidal Side Effects 05/26/19 21:00 Cariprazine (Vraylar) 1.5 mg QHS PO 05/30/19 21:00 05/30/19 20:57 Fluoxetine HCl (PROzac) 20 mg DAILY PO 05/28/19 09:00 05/31/19 09:20 Home Med (Med Rec Complete!) ASDIRECTED XX 05/26/19 18:45 05/26/19 18:43 DC Magnesium Hydroxide (Milk Of Magnesia) 30 ml DAILYPRN PRN PO CONSTIPATION 05/26/19 21:00 Olanzapine (ZyPREXA ZYDIS) 10 mg Q4HP PRN PO Anxiety/Agitation 05/26/19 21:00 Paliperidone (Invega) 1.5 mg QAM PO 05/28/19 09:00 05/27/19 19:27 DC Paliperidone (Invega) 3 mg BID PO 05/28/19 21:00 05/30/19 13:03 DC 05/30/19 09:05 Paliperidone (Invega) 3 mg QHS PO 05/27/19 19:30 05/28/19 16:41 DC 05/27/19 19:37 Trazodone HCl (Desyrel) 50 mg QHSP PRN PO INSOMNIA 05/26/19 21:00 Allergies Coded Allergies: codeine (Verified Allergy, Intermediate, facial swelling, 05/26/19) Cat Dander (Verified Allergy, Mild, 03/10/18) POLLEN (Verified Allergy, Mild, 03/10/18) mold (Verified Allergy, Unknown, 05/26/19) RACHEL QUIROGA DO May 31, 2019 09:26
[2019-05-31 16:27] VITALS: BP 131/75
[2019-05-31] MEDS: CARIPRAZINE 1.5MG CAPSULE (VRAYLAR) PO SCH (20:59)
[2019-06-01 05:59] VITALS: BP 142/86
--- NOTE | 2019-06-01 07:26 | MHIPNPDOC ---
[facility] Progress Note Progress Note Inpatient Progress Note Zaida Mehta MRN: N/A Date of : N/A Date of Service: 06/01/2019 History of Present Illness The patient is a 43-year-old woman with a history of schizophr enia/schizoaffective disorder, is brought in by her as she has become increasingly more paranoid, decompensated and unable to care for herself. The patient was brought in; however, she was not a sufficient historian and was admitted out of abundance of caution. The patient was met with, she was very guarded at times, but other times would give simple "no answers" and did not participate in the interview significantly well likely due to psychogenic thought process. She did report some paranoid thoughts, but was unable to describe them staring off into the distance. Interval History Psychiatric symptoms today: Affective: The patient reports feeling "good" and that she is denying any significant depressed mood, smiling more, more engaged and reports she is enjoying her activities more. Psychotic: The patient is not demonstrating any disorganized thought process or behavior and appears greatly improved. No paranoia noted and patient denies. Anxiety: The patient denies any anxiety symptoms. Misc: The patient is able to interact with little impairment Group Attendance: Present in most groups. Medication Side effects: See ROS below Behavioral problems/significant events overnight: None reported. Staff Report: The patient appears to be approaching her baseline, has been friendly and amenable with staff. Review Of Systems Cardiovascular: Denies Chest pain or palpations GI: Denies Nausea, vomiting, or bowel changes Respiratory: Denies shortness of breath or cough Neuro: Denies dizziness, tremors Derm: Denies any rashes or pruritus MSK: Denies any muscle tightness or stiffness HEENT: Denies any vision changes or headaches Psychotherapy None on this visit. Vital Signs Reviewed. Mental Status Examination General: Well dressed with good hygiene Speech: Fluid Thought processes: Linear MSK: Smooth and coordinated gait, no signs of tremors or involuntary orofacial movements Thought content: No paranoia noted Abstract reasoning, and computation: Improved Description of associations: Improved Description of abnormal or psychotic thoughts: Denies any suicidal or homicidal ideation. Denies any auditory or visual hallucinations. Does not appear to be responding to internal stimuli. Does not appear to be endorsing any bizarre or paranoid ideation. Judgment: Improved Insight: Improved Orientation: Alert and orientated 3 Cognition: Appears grossly slowed Recent and remote memory: Intact Attention span and concentration: Improved Fund of knowledge: Adequate Mood: "Fine" Affect: More reactive. Diagnoses Schizoaffective disorder, psychotic episode. Tobacco use disorder, unspecified. Assessment and Plan Schizoaffective disorder: Continue cariprazine 3 mg nightly. Tobacco use disorder: Offered nicotine patch. Disposition Discharge tomorrow if continued improvement. Time Spent 15 minutes. Thursday Vital Signs Vital Signs Date Time Temp Pulse Resp B/P (MAP) Pulse Ox O2 Delivery O2 Flow Rate FiO2 06/01/19 05:59 98.1 73 18 142/86 (104) 05/26/19 22:59 98 Room Air Current Medications Current Medications Medications (Trade) Dose Ordered Sig/Oralia Route PRN Reason Start Time Stop Time Status Last Admin Dose Admin Acetaminophen (Tylenol Tab) 650 mg Q6HP PRN PO HEADACHE or DISCOMFORT 05/26/19 21:00 Al Hydrox/Mg Hydrox/Simethicone (Mylanta) 30 ml Q4HP PRN PO HEARTBURN/INDIGESTION 05/26/19 21:00 Benztropine Mesylate (Cogentin) 1 mg QHS PRN PO EXTRAPYRAMIDAL SIDE EFFECTS 05/27/19 19:30 Benztropine Mesylate (Cogentin) 1 mg QHSP PRN PO Extrapyramidal Side Effects 05/26/19 21:00 Cariprazine (Vraylar) 1.5 mg QHS PO 05/30/19 21:00 05/31/19 15:18 DC 05/30/19 20:57 Cariprazine (Vraylar) 3 mg QHS PO 05/31/19 21:00 05/31/19 20:59 Fluoxetine HCl (PROzac) 20 mg DAILY PO 05/28/19 09:00 05/31/19 09:20 Home Med (Med Rec Complete!) ASDIRECTED XX 05/26/19 18:45 05/26/19 18:43 DC Magnesium Hydroxide (Milk Of Magnesia) 30 ml DAILYPRN PRN PO CONSTIPATION 05/26/19 21:00 Olanzapine (ZyPREXA ZYDIS) 10 mg Q4HP PRN PO Anxiety/Agitation 05/26/19 21:00 Paliperidone (Invega) 1.5 mg QAM PO 05/28/19 09:00 05/27/19 19:27 DC Paliperidone (Invega) 3 mg BID PO 05/28/19 21:00 05/30/19 13:03 DC 05/30/19 09:05 Paliperidone (Invega) 3 mg QHS PO 05/27/19 19:30 05/28/19 16:41 DC 05/27/19 19:37 Trazodone HCl (Desyrel) 50 mg QHSP PRN PO INSOMNIA 05/26/19 21:00 Allergies Coded Allergies: codeine (Verified Allergy, Intermediate, facial swelling, 05/26/19) Cat Dander (Verified Allergy, Mild, 03/10/18) POLLEN (Verified Allergy, Mild, 03/10/18) mold (Verified Allergy, Unknown, 05/26/19) RACHEL QUIROGA DO Jun 01, 2019 07:26
[2019-06-01] MEDS: FLUoxetine 20 MG CAP PO SCH (09:54)
[2019-06-01 15:52] VITALS: BP 130/65
[2019-06-01] MEDS: CARIPRAZINE 1.5MG CAPSULE (VRAYLAR) PO SCH (20:15)
[2019-06-02 06:26] VITALS: BP 138/86
[2019-06-02] MEDS: FLUoxetine 20 MG CAP PO SCH (08:40)
--- NOTE | 2019-06-02 10:51 | MHIPNPDOC ---
[facility] Progress Note Progress Note DATE OF SERVICE: 06/02/19 HISTORY: . VITAL SIGNS: See below. NEW TEST RESULTS: . CURRENT MEDICATIONS: See below. MENTAL STATUS EXAMINATION: Patient is a -year old female, who is . Speech: Is . Language skills are . Thought processes including: . Thought content: . Abstract reasoning, and computation: . Description of asso ciations: . Description of abnormal or psychotic thoughts: . Judgment: . Insight: [very limited, good, fair. poor]. Orientation: . Recent and remote memory: . Attention span and concentration: . Language: . Fund of knowledge: . Mood: . Affect: . DIAGNOSES: 1. . 2. . 3. . ASSESSMENT: MANAGEMENT PLAN: . TIME SPENT: minutes. Vital Signs Vital Signs Date Time Temp Pulse Resp B/P (MAP) Pulse Ox O2 Delivery O2 Flow Rate FiO2 06/02/19 06:26 98.1 67 12 138/86 (103) Room Air Current Medications Current Medications Medications (Trade) Dose Ordered Sig/Oralia Route PRN Reason Start Time Stop Time Status Last Admin Dose Admin Acetaminophen (Tylenol Tab) 650 mg Q6HP PRN PO HEADACHE or DISCOMFORT 05/26/19 21:00 Al Hydrox/Mg Hydrox/Simethicone (Mylanta) 30 ml Q4HP PRN PO HEARTBURN/INDIGESTION 05/26/19 21:00 Benztropine Mesylate (Cogentin) 1 mg QHS PRN PO EXTRAPYRAMIDAL SIDE EFFECTS 05/27/19 19:30 Benztropine Mesylate (Cogentin) 1 mg QHSP PRN PO Extrapyramidal Side Effects 05/26/19 21:00 Cariprazine (Vraylar) 1.5 mg QHS PO 05/30/19 21:00 05/31/19 15:18 DC 05/30/19 20:57 Cariprazine (Vraylar) 3 mg QHS PO 05/31/19 21:00 06/01/19 20:15 Fluoxetine HCl (PROzac) 20 mg DAILY PO 05/28/19 09:00 06/02/19 08:40 Home Med (Med Rec Complete!) ASDIRECTED XX 05/26/19 18:45 05/26/19 18:43 DC Magnesium Hydroxide (Milk Of Magnesia) 30 ml DAILYPRN PRN PO CONSTIPATION 05/26/19 21:00 Olanzapine (ZyPREXA ZYDIS) 10 mg Q4HP PRN PO Anxiety/Agitation 05/26/19 21:00 Paliperidone (Invega) 1.5 mg QAM PO 05/28/19 09:00 05/27/19 19:27 DC Paliperidone (Invega) 3 mg BID PO 05/28/19 21:00 05/30/19 13:03 DC 05/30/19 09:05 Paliperidone (Invega) 3 mg QHS PO 05/27/19 19:30 05/28/19 16:41 DC 05/27/19 19:37 Trazodone HCl (Desyrel) 50 mg QHSP PRN PO INSOMNIA 05/26/19 21:00 Allergies Coded Allergies: codeine (Verified Allergy, Intermediate, facial swelling, 05/26/19) Cat Dander (Verified Allergy, Mild, 03/10/18) POLLEN (Verified Allergy, Mild, 03/10/18) mold (Verified Allergy, Unknown, 05/26/19) RACHEL QUIROGA DO Jun 02, 2019 10:51
--- NOTE | 2019-06-02 11:06 | MHDSPDOC ---
[facility] Discharge Summary Discharge Summary DATE OF ADMISSION: May 26, 2019 at 20:57 DATE OF DISCHARGE: 06/02/19 Discharge Zaida Mehta MRN: N/A Date of : N/A Date of Service: 06/02/2019 Diagnoses Schizoaffective disorder, psychotic episode. Tobacco use disorder, unspecified. History of Present Illness The patient is a 43-year-old woman with a history of schizophrenia/schizoaffective disorder, is brought in by her as she has become increasingly more paranoid, decompensated and unable to care for herself. The patient was brought in; however, she was not a sufficient historian and was admitted out of abundance of caution. The patient was met with, she was very guarded at times, but other times would give simple "no answers" and did not participate in the interview significantly well likely due to psychogenic thought process. She did report some paranoid thoughts, but was unable to describe them staring off into the distance. Consultants Involved Hospitalist/PCP screening Treatment and Progress On The Unit The patient was admitted to the inpatient unit with initially some decompensa tion and paranoia from her schizophrenia, however, after the patient was taken off the Invega as it appeared ineffective, she has changed on the cariprazine 3 mg daily with positive effects. She was tapered up to the total dose of 3 with good response with a decrease in paranoia, better mood and no unusual behavior noted. The patient did well, attended groups and was able to communicate well by the end of her admission. Discharge Assessment 43-year-old woman with a history of schizophrenia/schizoaffective disorder presents psychotic and paranoid. She is changed from Invega to cariprazine with positive effects. On the day of discharge, she has been denying suicidal and homicidal ideation through her stay and has not been endorsing any paranoid ideation for the past several days. Her mental status is more or less normal. She is cooperative with discharge, pleasant and collateral information from her who feels that she has returned to close to her baseline. Thus she does not meet involuntary criteria in my opinion. She declines further voluntary and must be discharged in good miri. Mental Status Examination General: Well dressed with good hygiene Speech: Fluid Thought processes: Linear MSK: Smooth and coordinated gait, no signs of tremors or involuntary orofacial movements Thought content: No paranoia noted Abstract reasoning, and computation: Improved Description of associations: Improved Description of abnormal or psychotic thoughts: Denies any suicidal or homicidal ideation. Denies any auditory or visual hallucinations. Does not appear to be responding to internal stimuli. Does not appear to be endorsing any bizarre or paranoid ideation. Judgment: Improved Insight: Improved Orientation: Alert and orientated 3 Cognition: Appears grossly slowed Recent and remote memory: Intact Attention span and concentration: Improved Fund of knowledge: Adequate Mood: "Fine" Affect: More reactive. Follow Up The social work team worked during the predischarge meeting in order to evaluate for further issues of lethality address them fully before discharge. They worked on safety planning with the patient's family members in order to ensure that the patient will have a safe and effective discharge. Time Spent The amount of time spent in the coordination of care for this patient was approximately 30 minutes. Vital Signs/I&Os Vital Signs Date Time Temp Pulse Resp B/P (MAP) Pulse Ox O2 Delivery O2 Flow Rate FiO2 06/02/19 06:26 98.1 67 12 138/86 (103) Room Air Medications Scheduled Cariprazine HCl (Vraylar) 3 Mg Capsule, 1 CAP PO DAILY for thoughts for 30 Days, #30 Fluoxetine HCl (Prozac) 20 Mg Cap, 20 MG PO DAILY, (Reported) Scheduled PRN Benztropine Mesylate (Benztropine Mesylate) 1 Mg Tablet, 1 MG PO QHS PRN for EXTRAPYRAMIDAL SIDE EFFECTS, (Reported) Allergies Coded Allergies: codeine (Verified Allergy, Intermediate, facial swelling, 05/26/19) Cat Dander (Verified Allergy, Mild, 03/10/18) POLLEN (Verified Allergy, Mild, 03/10/18) mold (Verified Allergy, Unknown, 05/26/19) RACHEL QUIROGA DO Jun 02, 2019 11:06
[2019-06-02] MEDS ORDERED: VRAY3CAP PO (11:30)
== END 2019-06-02 14:30 | disposition home or self-care (01) | DRG 750 ==
LOC: M ED 17:32 → M ED INP 20:57 → M PSY 22:56 → M ED INP 05-27 00:10 → M PSY 05-27 04:52
PROVIDERS: ADMIT Psychiatry & Neurology Psychiatry; ATTEND Psychiatry & Neurology Addiction Medicine
DX: F25.8 Other schizoaffective disorders (principal); F17.200 Nicotine dependence, unspecified, uncomplicated; Z88.5 Allergy status to narcotic agent; Z79.899 Other long term (current) drug therapy